=== PATIENT | female | born 1975 | race Caucasian/White ===

== ENCOUNTER 2016-11-19 10:21 | Day surgery (SDC) | payer OTHER ==
[2016-11-19] VITALS (13 sets, daily range): BP systolic 114–127; BP diastolic 59–74; PULSE 66–98; RESP 14–22; Ht 167.6 cm; Wt 93.0 kg
[~2016-11-19] VITALS: Ht 167.6 cm; Wt 93.0 kg
[2016-11-19] MEDS ORDERED: SOD CHLORIDE 0.9% 1,000 ML IV SCH (10:30)
[2016-11-19] MEDS ORDERED: CEFAZOLIN 2 GM/50 ML (PMX) 50 ML IVPB ONE (10:30)
[2016-11-19] MEDS ORDERED: BUPIVACAINE 0.25% (MPF) 30 ML INJ INJ ONE (11:42)
[2016-11-19] MEDS ORDERED: SUCCINYLCHOLINE CHLORIDE 100 MG/5 ML SYG IV ONE (12:16)
[2016-11-19] MEDS ORDERED: ROCURONIUM 50 MG INJ ONE (12:16)
[2016-11-19] MEDS ORDERED: MEPERIDINE 100 MG INJ ONE (12:16)
[2016-11-19] MEDS ORDERED: GLYCOPYRROLATE 0.4 MG INJ ONE ×3 (12:16→12:55)
[2016-11-19] MEDS ORDERED: NEOSTIGMINE 3 MG/3 ML SYRINGE ONE ×2 (12:16→12:55)
[2016-11-19] MEDS ORDERED: LIDOCAINE 2% (SDV) 5 ML INJ ONE (12:16)
[2016-11-19] MEDS ORDERED: PROPOFOL 20 ML ONE (12:16)
[2016-11-19] MEDS ORDERED: CEFAZOLIN 1 GM INJ ONE (12:30)
[2016-11-19] MEDS ORDERED: METOCLOPRAMIDE 10 MG INJ ONE (12:30)
[2016-11-19] MEDS ORDERED: ONDANSETRON 4 MG INJ ONE (12:30)
[2016-11-19] MEDS ORDERED: BUPIVACAINE 0.25% (MPF) 30 ML INJ ONE (13:01)
--- NOTE | 2016-11-19 13:12 | OPR ---
Date/Time of Note Date/Time of Note DATE: 11/19/16 TIME: 13:09 Operative Report Procedure Date: Nov 19, 2016 Preoperative Diagnosis symptomatic gallstones Postoperative Diagnosis same Operation Performed 1. laparoscopic cholecystectomy 2. therapeutic injection of [place] cpt [id number] Surgeon: Seb RAND Specimens gallbladder Indications 41-year-old female with symptomatic gallstones presents to the hospital for a laparoscopic cholecystectomy. Risks alternatives benefits and percent were discussed the patient. Patient expressed understanding consents to the operation. Procedure Description Patient is taken to the OR and prepped and draped in usual sterile fashion surgical timeout was performed. IV antibiotics given. Infraumbilical incision is made with a 15 blade transversely. Dissection cautery was carried down to the fascia. Fascia is divided with curved Negro scissors. 0 Vicryl U stitch was placed to the fascia. Balloon Olea trocar is introduced. Pneumoperitoneum is established. Mid epigastric 12 mm optical trocar and right upper quadrant and right upper flank 5 mm optical trocar was placed under direct visualization. Upon initial inspection there are some adhesions to the gallbladder. These were taken down bluntly. The cystic duct is identified and carefully dissected out. 3 clips proximal 1 clip distal was placed onto the cystic duct. The cystic duct is divided with scissors. Cystic artery was divided after placing 3 clips proximal 1 clip distal. Gallbladder is taken off the gallbladder bed. There is good hemostasis. Gallbladder is retrieved using an Endo Catch bag. Ports removed under direct visualization. 0 Vicryl U stitch was tied down. Skin is closed using skin lety. Dry dressings were applied after local anesthesia was therapeutically injected into all subcutaneous incisional sites. Seb RAND Nov 19, 2016 13:12
[2016-11-19] MEDS ORDERED: hydrALAzine 20 MG INJ IV PRN (13:30)
[2016-11-19] MEDS ORDERED: LABETALOL HCL 20MG INJ IV PRN (13:30)
[2016-11-19] MEDS ORDERED: FENTAnyl 50 MCG/ML VIAL IV PRN ×3 (13:30)
[2016-11-19] MEDS ORDERED: MIDAZOLAM 1 MG/ML 2 ML INJ IV PRN (13:30)
[2016-11-19] MEDS ORDERED: EPHEDrine SULFATE 50 MG/5 ML SYG IV PRN (13:30)
[2016-11-19] MEDS ORDERED: OXYCODONE/ACETAMINOPHEN (5/325) TAB PO PRN ×2 (13:30)
[2016-11-19] MEDS ORDERED: morphine (1 MG/ML) 10ML SYRINGE IV PRN ×3 (13:30)
[2016-11-19] MEDS ORDERED: ONDANSETRON 4 MG INJ IV PRN (13:30)
[2016-11-19] MEDS ORDERED: DIPHENHYDRAMINE 50 MG INJ IV PRN (13:30)
[2016-11-19] MEDS ORDERED: HYDROCODONE/APAP (5/325) TAB PO ONE (13:30)
[2016-11-19] MEDS ORDERED: HYDROmorphONE (0.2 MG/ML) 10ML SYG IV PRN ×2 (13:30)
[2016-11-19] MEDS ORDERED: METOCLOPRAMIDE 10 MG INJ IV PRN (13:30)
[2016-11-19] MEDS ORDERED: MEPERIDINE 25 MG INJ IV PRN (13:30)
[2016-11-19] MEDS: HYDROmorphONE (0.2 MG/ML) 10ML SYG IV PRN ×2 (13:37→13:55)
== END 2016-11-19 15:05 | disposition home or self-care (01) ==
LOC: SDS 10:21
PROVIDERS: ATTEND Surgery
DX: K80.20 Calculus of gallbladder without cholecystitis without obstruction (principal); K81.1 Chronic cholecystitis; E66.9 Obesity, unspecified; Z68.31 Body mass index [BMI] 31.0-31.9, adult
CPT/HCPCS: 47562; 88304; J0690; J1170; J2175; J2405; J2710; J2765; J7999; Z7512; Z7610